=== PATIENT | female | born 1925 | race Caucasian/White ===

== ENCOUNTER 2016-06-12 22:48 | Emergency (ER) | payer MEDICARE, OTHER ==
[~2016-06-12] VITALS: Ht 152.4 cm; Wt 51.7 kg
[~2016-06-12 22:48] MED LIST: ASPI81TA2 PO
[2016-06-12 22:49] VITALS: BP 161/75
--- NOTE | 2016-06-12 23:23 | PHYS DOC ---
Past Medical History Past Medical History: No Pertinent History Past Surgical History: No Surgical History Alcohol Use: None Drug Use: None Adult General Chief Complaint Chief Complaint: MECHANICAL FALL HPI HPI Patient is a 89 year old female who presents with complaint of fall which took place at home. Patient states that this happened approximately 1 hour prior to arrival. The patient was attempting to get up and go to the restroom. Patient states that she lost control of her walker which caused her to fall forward. Patient tried to reach out to break her fall but fell hitting her forehead and her nose on the floor. Patient denied any loss of consciousness. Patient denied any chest pain or lightheadedness prior to her fall. The patient states that she is not having any headache currently. Patient states that she is having some trouble breathing through her nose and admitted that she did have bleeding from her nose initially which is currently controlled. Patient takes daily baby aspirin but denies any other is a blood thinners. The patient was brought to the emergency department by EMS. Review of Systems Review of Systems Constitutional: Denies fever or chills [] Eyes: Denies change in visual acuity, redness, or eye pain [] HENT: Head injury, facial trauma, epistaxis [] Respiratory: Denies cough or shortness of breath [] Cardiovascular: Denies chest pain or edema [] GI: Denies abdominal pain, nausea, vomiting, bloody stools or diarrhea [] : Denies dysuria or hematuria [] Musculoskeletal: Denies back pain or joint pain [] Integument: Denies rash or skin lesions [] Neurologic: Denies headache, focal weakness or sensory changes [] Current Medications Current Medications Current Medications Medications (Trade) Dose Ordered Sig/Oly Start Time Stop Time Status Last Admin Dose Admin Oxymetazoline HCl (Afrin) 2 spray 1X ONCE 06/12/16 23:30 06/12/16 23:31 DC 06/12/16 23:20 2 SPRAY Allergies Allergies Allergies Coded Allergies Type Severity Reaction Last Updated Verified No Known Drug Allergies 02/20/16 No Physical Exam Physical Exam Constitutional: Alert, afebrile, no acute distress. [] HENT: Normocephalic, significant ecchymosis to bridge of nose, abrasions to right side of forehead and face, boggy nasal mucosa with dried blood in bilateral nares, bilateral external ears normal, oropharynx moist, no oral exudates. [] Eyes: PERRLA, EOMI, conjunctiva normal, no discharge. [] Neck: Normal range of motion, no tenderness, supple, no stridor. [] Cardiovascular:Heart rate regular rhythm, no murmur [] Lungs & Thorax: Bilateral breath sounds clear to auscultation [] Abdomen: Bowel sounds normal, soft, no tenderness, no masses, no pulsatile masses. [] Skin: Warm, dry, no erythema, no rash. [] Extremities: No tenderness, no cyanosis, no clubbing, ROM intact, no edema. [] Neurologic: Alert and oriented X 3, normal motor function, normal sensory function, no focal deficits noted. [] Current Patient Data Vital Signs Vital Signs Date Time Temp Pulse Resp B/P Pulse Ox O2 Delivery O2 Flow Rate FiO2 06/12/16 22:49 97.6 92 20 161/75 97 Room Air 97.6 EKG EKG Not performed [] Radiology/Procedures Radiology/Procedures [facility] [address] [place] [address] IMAGING REPORT Signed PATIENT: MADHAVI POWELL ACCOUNT: [id number] : 1925 LOCATION: ER AGE: 89 SEX: F EXAM STATUS: PRE ER ORD. PHYSICIAN: TENNILLE LARA MD REASON: fall, head and facial trauma PROCEDURE: HEAD AND MAXILLOFACIAL WO Examination: CT head and maxillofacial bones without contrast History: History of fall, nasal laceration, bruise in the forehead COMPARISON None available. TECHNIQUE Axial CT images of the head without contrast axial CT images of the maxillofacial bones performed without contrast. Coronal sagittal reformats of the maxillofacial bones were performed. Exposure: One or more of the following dose reduction technique were utilized for this examination: 1. Automated exposure control. 2.Adjustment of MA and /or KV according to patient size. 3. Use of iterative reconstruction technique. Findings : There is no evidence of midline shift. No acute intracranial bleed or extra-axial fluid collection identified. Moderate bilateral periventricular white matter hypodensities likely chronic small vessel ischemic disease. The basal cisterns are not effaced. The bilateral orbital globes appear intact. The retro-orbital fat is maintained. There is minimal irregularity identified in the right nasal bone likely nondisplaced fracture of the nasal bone. There is a minimal irregularity identified in the midportion of the nasal septum could be injury or fracture. There is some density identified in the nasal cavity and in the ethmoidal sinus region probably blood. The orbital chester appear intact. Small amount of fluid identified in the bilateral maxillary sinuses probably blood. Metallic hardware identified in the anterior mandible limits evaluation. IMPRESSION - No acute intracranial findings . - Mild irregularity identified in the right nasal bone likely nondisplaced fracture. There is some cortical irregularity identified in the nasal septum region in its midportion, best visualized on series 3 image 35 could be injury or fracture. Correlate clinically. - Small amount of fluid identified in the nasal cavity and in the bilateral maxillary sinuses probably blood. Electronically signed by: Isaac Yusuf (Jun 12, 2016 23:45:03) DICTATED and SIGNED BY: ISAAC YUSUF MD DATE: 06/12/16 2058 CC: TENNILLE LARA MD; KARL HARGROVE MD ~ [] Course & Med Decision Making Course & Med Decision Making Pertinent Labs and Imaging studies reviewed. (See chart for details) Patient was given Afrin nasal spray in the emergency department which improved the patient's nasal congestion. Patient's CT imaging showed mild nasal injury with no significant intracranial injury. Spoke with the patient's family regarding head injury precautions and need for awakening the patient every 2 hours this evening. Advise follow-up with patient's primary doctor in 1 week and return to emergency department for any worsening symptoms. Patient patient' s family voiced understanding and in agreement with treatment plan. Dragon Disclaimer Dragon Disclaimer This electronic medical record was generated, in whole or in part, using a voice recognition dictation system. Departure Departure Impression: Primary Impression: Closed head injury Additional Impressions: Nasal bone fracture Facial abrasion Fall from standing Disposition: 01 HOME, SELF-CARE Condition: IMPROVED Referrals: KARL HARGROVE MD (PCP) Patient Instructions: Head Injury, Adult, Nasal Fracture Additional Instructions: Follow-up in one week with her primary physician. You may continue to use Afrin nasal spray for the next 2 days. Please discontinue after a total of 3 days of use as longer use may cause worsening congestion. Return to the emergency department for any worsening symptoms. Problem Qualifiers Primary Impression: Closed head injury Encounter type: initial encounter Qualified Code: S09.90XA - Unspecified injury of head, initial encounter Additional Impressions: Nasal bone fracture Encounter type: initial encounter Fracture type: closed Qualified Code: S02.2XXA - Fracture of nasal bones, initial encounter for closed fracture Facial abrasion Encounter type: initial encounter Qualified Code: S00.81XA - Abrasion of other part of head, initial encounter Fall from standing Encounter type: initial encounter Qualified Code: W19.XXXA - Unspecified fall, initial encounter TENNILEL LARA MD Jun 12, 2016 23:23
[2016-06-12] MEDS ORDERED: OXYMETAZOLINE 0.05% NASAL SPRAY 30ML BOTTLE. NS ONE (23:30)
--- NOTE | 2016-06-12 23:47 | RAD ---
Examination: CT head and maxillofacial bones without contrast History: History of fall, nasal laceration, bruise in the forehead COMPARISON None available. TECHNIQUE Axial CT images of the head without contrast axial CT images of the maxillofacial bones performed without contrast. Coronal sagittal reformats of the maxillofacial bones were performed. Exposure: One or more of the following dose reduction technique were utilized for this examination: 1. Automated exposure control. 2.Adjustment of MA and /or KV according to patient size. 3. Use of iterative reconstruction technique. Findings : There is no evidence of midline shift. No acute intracranial bleed or extra-axial fluid collection identified. Moderate bilateral periventricular white matter hypodensities likely chronic small vessel ischemic disease. The basal cisterns are not effaced. The bilateral orbital globes appear intact. The retro-orbital fat is maintained. There is minimal irregularity identified in the right nasal bone likely nondisplaced fracture of the nasal bone. There is a minimal irregularity identified in the midportion of the nasal septum could be injury or fracture. There is some density identified in the nasal cavity and in the ethmoidal sinus region probably blood. The orbital chester appear intact. Small amount of fluid identified in the bilateral maxillary sinuses probably blood. Metallic hardware identified in the anterior mandible limits evaluation. IMPRESSION - No acute intracranial findings . - Mild irregularity identified in the right nasal bone likely nondisplaced fracture. There is some cortical irregularity identified in the nasal septum region in its midportion, best visualized on series 3 image 35 could be injury or fracture. Correlate clinically. - Small amount of fluid identified in the nasal cavity and in the bilateral maxillary sinuses probably blood. Electronically signed by: Isaac Yusuf (Jun 12, 2016 23:45:03)
== END 2016-06-13 00:17 | disposition home or self-care (01) ==
LOC: ER 22:48
DX: S02.2XXA Fracture of nasal bones, initial encounter for closed fracture (principal); S00.81XA Abrasion of other part of head, initial encounter; W01.198A Fall on same level from slipping, tripping and stumbling with subsequent striking against other object, initial encounter; Y93.01 Activity, walking, marching and hiking; Y92.098 Other place in other non-institutional residence as the place of occurrence of the external cause; Y99.8 Other external cause status
CPT/HCPCS: 70450; 70486; 99284-25